=== PATIENT | male | born 1980 | race Caucasian/White ===

== ENCOUNTER → 2020-03-30 15:11 | Outpatient (CLI) | payer OTHER, SELFPAY ==
--- NOTE | ~2020-03-30 | XR_ITS ---
EXAMINATION: XR shoulder RT min 2V DATE: 03/30/2020 15:47 INDICATION: Right shoulder pain. TECHNIQUE: 4 views of right shoulder were obtained. COMPARISON: None. FINDINGS: Bone alignment is normal. No fracture. Glenohumeral joint is normal. There is mild acromioc lavicular joint osteoarthritis. IMPRESSION: 1. Mild right acromioclavicular joint osteoarthritis. Reviewed, dictated and finalized at location A.
== END ==
PROVIDERS: PCP Family Medicine; Visit Provider Family Medicine
DX: M19.011 Primary osteoarthritis, right shoulder (principal)
CPT/HCPCS: 73030

== ENCOUNTER 2023-05-23 10:11 | Emergency (ER) | payer OTHER, SELFPAY ==
[2023-05-23] VITALS (14 sets, daily range): BP systolic 106–158; BP diastolic 70–87; PULSE 52–88; RESP 15–20; TEMP 36.3–36.8; O2SAT 96–100
--- NOTE | ~2023-05-23 | XR_ITS ---
EXAMINATION: XR chest 2V DATE: 05/23/2023 10:42 INDICATION: Chest pain TECHNIQUE: PA and lateral views of the chest were obtained. COMPARISON: None FINDINGS: The lungs are clear with no focal airspace opacities, pulmonary edema, pleural effusion or pneumothor ax. The cardiomediastinal silhouette is normal. Mild thoracic spondylosis with chronic appearing mini mal to mild anterior wedging of a few mid and lower thoracic vertebral bodies. IMPRESSION: 1. No acute cardiopulmonary disease. Reviewed, dictated and finalized at location A.
--- NOTE | 2023-05-23 10:13 | ECG_ITS ---
Measurements Intervals [place] Rate: 76 P: 37 NH: 139 QRS: -17 QRSD: 88 T: 29 QT: 359 QTc: 406 Interpretive Statements SINUS RHYTHM POSSIBLE LEFT ATRIAL ENLARGEMENT [-0.1mV P WAVE IN V1/V2] NO PREVIOUS ECG AVAILABLE FOR COMPARISON Electronically Signed On 05-23-2023 19:56:06 CDT by Amie England M.D.
[2023-05-23 10:36] LABS: Basophils Percent Auto 0.4 % (0.2-1.2); Eosinophils Percent Auto 0.2 % (0-4.4); Hematocrit 45.5 % (42.0-52.0); Hemoglobin 14.7 g/dL (14.0-18.0); Immature Granulocyte Absolute 0.01 K/mm3 (0.00-0.031); Immature Granulocyte Percent A 0.2 % (0-0.5); Lymphocytes Absolute Auto 1.38 K/mm3 (0.9-3.2); Mean Corpuscular HGB Conc 32.3 g/dl (32-36); Mean Corpuscular Hemoglobin 28.8 pg (26-34); Mean Corpuscular Volume 89.2 fl (80-100); Mean Platelet Volume 10.6 fl (7.4-10.4); Monocytes Absolute Auto 0.2 K/mm3 (0.1-0.6); Monocytes Percent Auto 3.9 % (2.6-8.5); Neutrophils Absolute Auto 3.5 K/mm3 (1.3-6.7); Neutrophils Percent Auto 68.3 % (45.5-73.1); Platelet Count Result 204 k/mm3 (150-375); White Blood Count 5.1 K/mm3 (4.5-10.0)
[2023-05-23 10:43] LABS: INR 0.9; Prothrombin Time 12.8 Seconds (11.1-14.7)
[2023-05-23 10:44] LABS: Partial Thromboplastin Time 27.5 SECONDS (22.3-36.8)
[2023-05-23 10:49] LABS: Alanine Aminotransferase 30 U/L (6-50); Albumin Level 4.7 g/dL (3.5-5.1); Alkaline Phosphatase 50 U/L (38-126); Anion Gap 9 mmol/L (8-16); Aspartate Amino Transferase 36 U/L (17-59); Bilirubin,Total 1.3 mg/dL (0.2-1.3); Blood Urea Nitrogen 23 mg/dL (9-20); Calcium 9.4 mg/dL (8.4-10.2); Carbon Dioxide 29 mmol/L (22-30); Chloride 103 mmol/L (98-107); Estimated CRCL calculation 104 ml/min; Estimated Glomerular Filt Rate > 60; Glucose 114 mg/dL (65-110); Lipase 66 U/L (23-300); Sodium 141 mmol/L (137-145)
[2023-05-23] MEDS: ASPIRIN 81 MG CHEWABLE TABLET 324 MG PO (11:15)
[2023-05-23 11:22] LABS: Troponin I < 0.012 ng/mL (0.000-0.034)
--- NOTE | 2023-05-23 12:36 | ED.CHESTPAIN ---
HPI - Chest Pain General Chief Complaint: Chest Pain Stated Complaint: chest pain Time Seen by Provider: 05/23/23 11:57 History of Present Illness HPI narrative: Patient is a 43-year-old male presenting with chest pain. Patient states that he was sitting this morning when he developed left-sided chest pain and left shoulder pain. States that he had some chest pain about 7 years ago and at that time he failed a stress test and had to go to the [facility]. No significant disease was found and he was not started on any medications. States he never followed up with cardiology. The pain today was not exacerbated or alleviated by anything but it has since nearly resolved. No associated shortness of breath, lightheadedness, palpitations, diaphoresis, nausea. No recent leg swelling. States that he has been working out lately and has not had any exertional chest pain. No fevers, cough, or other infectious symptoms. Currently states that he feels pretty well. Related Data Allergies Allergy/AdvReac Type Severity Reaction Status Date / Time No Known Allergies Allergy Verified 03/23/23 16:01 Review of Systems Review of Systems: All systems reviewed & are unremarkable except as noted in HPI and below PMFSH Surgical History Surgical History History of appendectomy Family History Family History Father Hypertension Renal cell cancer Prostate cancer genetic susceptibility Sibling Hypertension Grandparent Family history of cardiovascular disease Social History Social History Smoking status: Never smoker Alcohol intake: current Drinks per week: 2 Alcohol use details: [place] Substance use: never Substance use type: does not use Living arrangements: with family Occupation/Education: occupation Gender identity (if verbalized by the patient): Male Sexual Orientation (if Verbalized by the Patient): Straight or Heterosexual Agree to blood products: Yes Exam Narrative: GENERAL: Well-appearing, well-nourished, and in no acute distress. HEAD: Normocephalic, atraumatic. EYES: PERRLA and EOMI. ENT: Nares clear, no rhinorrhea or epistaxis. Mucous membranes moist. NECK: Supple. CHEST: Clear to auscultation. No respiratory distress. No chest wall tenderness HEART: Regular rate and rhythm ABDOMEN: Soft, nontender, nondistended EXTREMITIES: Normal range of motion. No edema. SKIN: Warm, dry, no rash. NEURO: No focal deficits. Alert and oriented x3. PSYCH: Normal mood and affect. Course Vital Signs Vital signs: Vital Signs Temperature 97.3 F L 05/23/23 10:18 Pulse Rate 83 05/23/23 10:18 Respiratory Rate 18 05/23/23 10:18 Blood Pressure 158/87 H 05/23/23 10:18 Pulse Oximetry 99 05/23/23 10:18 Oxygen Delivery Room Air 05/23/23 10:18 Temperature 98.3 F 05/23/23 11:16 Pulse Rate 54 L 05/23/23 14:45 Respiratory Rate 18 05/23/23 14:45 Blood Pressure 141/86 H 05/23/23 14:45 Pulse Oximetry 99 05/23/23 14:45 Oxygen Delivery Room Air 05/23/23 12:00 MDM - Chest Pain MDM Narrative Medical decision making narrative: 43-year-old male presenting with left shoulder and chest pain earlier today. Vitals are stable. Exam remarkable for the above. EKG per my interpretation shows normal sinus rhythm, no acute ischemic changes. Blood work is unremarkable. Troponin is undetectable. 3-hour troponin is undetectable. Chest x-ray without acute abnormalities. On reevaluation, the patient states that he feels well. Not having any pain. Advised PCP follow-up. Appropriate return precautions given. Discharged in stable condition. Differential Diagnosis Differential diagnosis: Likely fracture of rib, pneumothorax, atypical chest pain, costochondritis and chest pain Medical Records Data Attestation: I revie
[2023-05-23 14:11] LABS: Troponin I < 0.012 ng/mL (0.000-0.034)
--- NOTE | 2023-05-23 14:13 | PC.NURSE ---
Chemistry called inquiring about Troponin results. Tech states 2 more minutes.
== END 2023-05-23 14:47 | disposition home or self-care (01) ==
PROVIDERS: Emergency Medicine; Emergency Provider Emergency Medicine; PCP Family Medicine
DX: R07.89 Other chest pain (principal)
CPT/HCPCS: 36415; 71046; 80053; 83690; 84484; 85025; 85610; 85730; 93005; 99284; A9270

== ENCOUNTER 2024-11-20 07:58 | Outpatient (CLI) | payer OTHER, SELFPAY | END 2024-11-20 07:59 | disposition home or self-care (01) | LOC: MICIMG 07:59 | PROVIDERS: PCP Family Medicine; Visit Provider Family Medicine | DX: M25.569 Pain in unspecified knee (principal) | CPT/HCPCS: 73562 ==